=== PATIENT | male | born 1950 | race Caucasian/White ===

== ENCOUNTER 2022-02-16 16:16 | Emergency (ER) | payer MEDICARE, BC ==
[2022-02-16 16:43] VITALS: PULSE 67
[2022-02-16] MEDS ORDERED: Sodium Chloride 0.9% 10 ML Syringe FLUSH PRN (17:06)
[2022-02-16] MEDS ORDERED: Heparin Sodium 5,000 Units/ML Vial IVPUSH ONE (17:06)
[2022-02-16] MEDS ORDERED: Nitroglycerin 0.4 MG Tab.SL SL ONE (17:13)
[2022-02-16] MEDS ORDERED: Heparin Sodium/D5W 25,000 UNITS/500 ML BAG IV SCH (17:15)
[2022-02-16 18:15] VITALS: BP 149/87
== END 2022-02-16 19:22 ==
LOC: JP.ED 16:16
DX: I21.4 Non-ST elevation (NSTEMI) myocardial infarction (principal); Z20.822 Contact with and (suspected) exposure to COVID-19
CPT/HCPCS: 36415; 71045; 85610; 85730; 96365; 96376; 99285; A9270; J1644; J3490; U0002

== ENCOUNTER 2022-04-18 15:12 | Emergency (ER) | payer MEDICARE ==
[2022-04-18 15:24] VITALS: BP 138/69; PULSE 60
[2022-04-18] MEDS ORDERED: Sodium Chloride 0.9% 10 ML Syringe FLUSH PRN (16:18)
[2022-04-18] MEDS ORDERED: Acetaminophen/HYDROcodone 325-5 MG Tab PO ONE (16:18)
[2022-04-18] MEDS ORDERED: Sodium Chloride 0.9% 10 ML Syringe FLUSH ONE (16:36)
[2022-04-18] MEDS ORDERED: Sodium Chloride 0.9% 50 ML IV ONE (16:36)
[2022-04-18] MEDS ORDERED: Iopamidol 612 MG/ML 100 ML Bottle IV SCH (16:45)
== END 2022-04-18 18:34 | disposition home or self-care (01) ==
LOC: JP.ED 15:12
DX: K57.92 Diverticulitis of intestine, part unspecified, without perforation or abscess without bleeding (principal); I10 Essential (primary) hypertension; Z79.899 Other long term (current) drug therapy; Z79.82 Long term (current) use of aspirin
CPT/HCPCS: 36415; 74176; 80048; 81001; 85025; 86140; 99284; A9270; J3490

== ENCOUNTER 2022-11-22 19:09 | Emergency (ER) | payer MEDICARE ==
[2022-11-22 21:09] LABS: BASOPHILS PERCENT AUTO 0.3 % (0.1-1.3); EOSINOPHILS ABSOLUTE AUTO 0.05 K/uL (0.00-0.40); EOSINOPHILS PERCENT AUTO 0.6 % (0.0-5.4); HEMATOCRIT 40.8 % (38.4-49.7); HEMOGLOBIN 14.4 g/dL (12.9-16.9); IMMATURE GRAN PERCENT AUTO 0.3 % (0.0-0.7); LYMPHOCYTES ABSOLUTE AUTO 0.48 K/uL (0.8-3.3); LYMPHOCYTES PERCENT AUTO 6.2 % (11.4-47.7); MEAN CORPUSCULAR HEMOGLOBIN 32.7 pg (31.6-35.5); MEAN CORPUSCULAR HGB CONC 35.3 g/dL (31.6-35.5); MEAN CORPUSCULAR VOLUME 92.5 fL (81.4-99.0); MONOCYTES ABSOLUTE AUTO 0.56 K/uL (0.20-0.90); MONOCYTES PERCENT AUTO 7.3 % (3.3-12.6); NEUTROPHILS ABSOLUTE AUTO 6.59 K/uL (1.0-7.6); NEUTROPHILS PERCENT AUTO 85.3 % (40.0-78.1); PLATELET COUNT,PLT 134 K/uL (130-375); RED BLOOD CELL COUNT 4.41 M/uL (4.14-5.76); WHITE BLOOD CELL COUNT,WBC 7.7 K/uL (3.2-11.0)
[2022-11-22 21:10] LABS: BASOPHILS ABSOLUTE AUTO 0.02 K/uL (0.00-0.10); IMMATURE GRAN ABSOLUTE AUTO 0.02 K/uL (0.00-0.23)
[2022-11-22 21:31] LABS: CALCIUM 8.6 mg/dL (8.5-10.1); EST CRCL DRUG DOSING (CG) 65.55 mL/min; MAGNESIUM 1.8 mg/dL (1.8-2.4); POTASSIUM,K 3.7 mmol/L (3.6-5.2); TROPONIN I HIGH SENSITIVITY 9.8 pg/mL (<=60.3)
[2022-11-22 21:46] LABS: ANION GAP 16.7 mmol/L (5.0-14.0)
[2022-11-22 22:06] VITALS: BP 133/53; PULSE 44
== END 2022-11-22 22:05 | disposition home or self-care (01) ==
LOC: JP.ED 19:09
DX: K52.9 Noninfective gastroenteritis and colitis, unspecified (principal); I10 Essential (primary) hypertension; Z79.02 Long term (current) use of antithrombotics/antiplatelets; Z79.899 Other long term (current) drug therapy
CPT/HCPCS: 36415; 71046; 71046-26; 80048; 83735; 84484; 85025; 93005; 93010; 99284; 99285

== ENCOUNTER 2023-08-24 14:53 | Emergency (ER) | payer MEDICARE | END 2023-08-24 16:29 | disposition left against medical advice (07) | LOC: JP.ED 14:53 | DX: Z53.21 Procedure and treatment not carried out due to patient leaving prior to being seen by health care provider (principal) ==